=== PATIENT | female | born 1985 | race Caucasian/White ===

== ENCOUNTER 2016-04-25 21:39 | Emergency (ER) | payer OTHER ==
--- NOTE | 2016-04-25 22:05 | ED Physician Documentation ---
Lower Extremity Problem - HISTORIAN Historian: patient, spouse - [facility] Stated Complaint: feet injured Chief Complaint: Foot Injury Additional Information: Fell from last stair, holding child. Landed with feet under her. Mid feet sore, L>R. - ROS CONST: no problems - PAST HX Past History: none Allergies/Adverse Reactions: Allergies Allergy/AdvReac Type Severity Reaction Status Date / Time No Known Allergies Allergy Verified 04/25/16 22:10 Home Medications: Ambulatory Orders Medication Instructions Recorded Norgestimate-Ethinyl Estradiol 1 tab PO MO 04/25/16 [Sprintec 28 Day Tablet] - SOCIAL HX Smoking History: cigarettes - FAMILY HX Family History: no significant history - VITAL SIGNS Vital Signs: Vital Signs Temp Pulse Resp BP Pulse Ox 98.1 F 64 18 127/58 99 04/25/16 21:40 04/25/16 21:40 04/25/16 21:40 04/25/16 21:40 04/25/16 21:40 - REVIEWED ASSESSMENTS Nursing Assessment Reviewed: Yes Vitals Reviewed: Yes Progress - Progress Progress: Right foot-three views CLINICAL HISTORY: Fall with injury. Pain. FINDINGS: Examination right foot in plantar, lateral and oblique views fails to demonstrate evidence of fracture, dislocation or other bone or joint pathology. Electronically signed on Apr 25, 2016 10:33:40 PM TREE PRUNER by: Yonny Godwin Left foot -three views CLINICAL HISTORY: Fall with injury. Pain. FINDINGS: Examination of the left foot plantar, lateral and oblique views fails to demonstrate evidence of fracture, dislocation or other bone or joint pathology. Electronically signed on Apr 25, 2016 10:33:06 PM TREE PRUNER by: Yonny Godwin ED Results Lab/Radiology - Orders Orders: ED Orders Category Date Time Status Aroldo Wrap to Bilateral Lower Ex 1T Care 04/25/16 22:49 Ordered XRAY FOOT [FOOT 3 VIEWS OR MORE] [RAD] Stat Exams 04/25/16 Taken XRAY FOOT [FOOT 3 VIEWS OR MORE] [RAD] Stat Exams 04/25/16 Taken Lower Extremity Problem - EXAM General Appearance: no distress Hips: bilateral hip: no evidence of injury Legs: bilateral: no evidence of injury Knees: bilateral: no evidence of injury Ankle: bilateral: no evidence of injury Foot: right foot: limited range of motion (2/2 pain), left foot: ecchymosis ( central mid foot), bilateral foot: swelling (left central mid foot; right lateral mid foot), other (DP and PT 2+) Neuro/Tendon: normal sensation, normal motor functions EENT: eye inspection normal, ENT inspection normal RESPIRATORY: no resp distress JOINT: limited ROM (left foot; also limits walking) VASCULAR: no vascular compromise, pulses full/equal NEURO/PSYCH: CN's nml as tested, motor nml, sensation nml SKIN: warm/dry, normal color (except as above) BACK: other (movements w'/o pain) Discharge Clincal Impression: Contusion of foot Qualifiers: Encounter type: initial encounter Laterality: unspecified laterality Qualified Code(s): S90.30XA - Contusion of unspecified foot, initial encounter Additional Instructions: Ice to sore areas for 30 minutes of each hour you are awake. Keep your feet elevated as much as possible for the next few days. You can take Tylenol or ibuprofen if needed for discomfort. Home Medications: Ambulatory Orders Norgestimate-Ethinyl Estradiol [Sprintec 28 Day Tablet] 1 tab PO MO 04/25/16 Condition: Fair Disposition: 01 HOME, SELF-CARE Decision to Admit: NO Decision Time: 22:50
[2016-04-25 22:10] VITALS: BP 127/58
--- NOTE | 2016-04-26 07:32 | Diagnostic Imaging Report ---
ARTUR ALFARO [facility] [address] [facility] [address] [address] Report Submission Date: Apr 25, 2016 10:33:06 PM AWNING FINISHER Patient Study Name: SURENDRA ALCALA Date: Apr 25, 2016 10:14:30 PM AWNING FINISHER Modality Type: CR Gender: F Description: LOWER EXTREMITY : 87 Institution: [facility] Physician: ARTUR ALFARO Left foot -three views CLINICAL HISTORY: Fall with injury. Pain. FINDINGS: Examination of the left foot plantar, lateral and oblique views fails to demonstrate evidence of fracture, dislocation or other bone or joint pathology. Electronically signed on Apr 25, 2016 10:33:06 PM AWNING FINISHER by: Yonny MOFFETT
--- NOTE | 2016-04-26 07:33 | Diagnostic Imaging Report ---
ARTUR ALFARO [facility] [address] [facility] [address] [address] Report Submission Date: Apr 25, 2016 10:33:40 PM DIRECTOR ORGANIZATIONAL Patient Study Name: SURENDRA ALCALA Date: Apr 25, 2016 10:19:58 PM DIRECTOR ORGANIZATIONAL Modality Type: CR Gender: F Description: LOWER EXTREMITY : 87 Institution: [facility] Physician: ARTUR ALFARO Right foot-three views CLINICAL HISTORY: Fall with injury. Pain. FINDINGS: Examination right foot in plantar, lateral and oblique views fails to demonstrate evidence of fracture, dislocation or other bone or joint pathology. Electronically signed on Apr 25, 2016 10:33:40 PM DIRECTOR ORGANIZATIONAL by: Yonny MOFFETT
== END 2016-04-25 22:55 | disposition home or self-care (01) ==
LOC: ED 21:39
DX: S90.31XA Contusion of right foot, initial encounter (principal); S90.32XA Contusion of left foot, initial encounter; X58.XXXA Exposure to other specified factors, initial encounter; Y93.9 Activity, unspecified; Y99.9 Unspecified external cause status
CPT/HCPCS: 73630; 99283